=== PATIENT | male | born 1960 | race Caucasian/White ===

== ENCOUNTER 2017-10-20 17:49 | Emergency (ER) | payer SELFPAY ==
[2017-10-20 18:13] LABS: ADD MAN DIFF? NO
[2017-10-20 18:17] LABS: BASO % 1 % (0-3); EOS # 0.1 x10^3/uL (0.0-0.7); EOS % 2 % (0-3); HEMATOCRIT 39.9 % (39.0-53.0); HEMOGLOBIN 13.9 g/dL (13.0-17.5); LYMPH # 1.5 x10^3/uL (1.0-4.8); LYMPH % 32 % (24-48); MEAN CORPUSCULAR HEMOGLOBIN 34 pg (25-35); MEAN CORPUSCULAR HGB CONC 35 g/dL (31-37); MEAN CORPUSCULAR VOLUME 97 fL (79-100); MONO # 0.5 x10^3/uL (0.0-1.1); MONO % 10 % (0-9); NEUT # 2.6 x10^3uL (1.8-7.7); NEUT % 56 % (31-73); PLATELET COUNT 79 x10^3/uL (140-400); RED BLOOD COUNT 4.11 x10^6/uL (4.30-5.70); RED CELL DISTRIBUTION WIDTH 12.6 % (11.5-14.5); WHITE BLOOD COUNT 4.7 x10^3/uL (4.0-11.0)
[2017-10-20] MEDS: IV NORMAL SALINE 1000ML BAG 1,000 ML IV (18:21)
[2017-10-20 18:31] LABS: ANION GAP 13 (6-14); BLOOD UREA NITROGEN 39 mg/dL (8-26); BUN/CREATININE RATIO 22 (6-20); CALCIUM 8.9 mg/dL (8.5-10.1); CARBON DIOXIDE 21 mmol/L (21-32); CHLORIDE 100 mmol/L (98-107); CREATININE 1.8 mg/dL (0.7-1.3); GFR 38.9; GLUCOSE 379 mg/dL (70-99); POTASSIUM 4.3 mmol/L (3.5-5.1); SODIUM 134 mmol/L (136-145)
[2017-10-20 18:36] LABS: ALBUMIN 3.3 g/dL (3.4-5.0); ALBUMIN/GLOBULIN RATIO 0.7 (1.0-1.7); ALK PHOS 73 U/L (46-116); ALT (SGPT) 156 U/L (16-63); AST (SGOT) 111 U/L (15-37); TOTAL BILIRUBIN 0.9 mg/dL (0.2-1.0); TOTAL PROTEIN 8.1 g/dL (6.4-8.2)
[2017-10-20 18:36] LABS: TROPONINI 0.023 ng/mL (0.000-0.055)
[2017-10-20 19:21] LABS: BILIRUBIN,URINE SMALL (NEG); CLARITY,URINE CLEAR; COLOR,URINE AMBER; GLUCOSE,URINE >=1000 mg/dL (NEG); NITRITE,URINE NEGATIVE (NEG); PH,URINE 5.5; PROTEIN,URINE 100 mg/dL (NEG-TRACE)
[2017-10-20 19:44] LABS: BACTERIA,URINE 0 /HPF (0-FEW); HYALINE CASTS, URINE MANY /HPF; RBC,URINE 0 /HPF (0-2)
== END 2017-10-20 19:33 | disposition left against medical advice (07) ==
LOC: ER 17:49
DX: E11.65 Type 2 diabetes mellitus with hyperglycemia (principal); I95.1 Orthostatic hypotension; R79.89 Other specified abnormal findings of blood chemistry; I48.91 Unspecified atrial fibrillation; I10 Essential (primary) hypertension; Z86.73 Personal history of transient ischemic attack (TIA), and cerebral infarction without residual deficits; Z91.010 Allergy to peanuts; Z88.0 Allergy status to penicillin; Z91.013 Allergy to seafood; Z91.018 Allergy to other foods
CPT/HCPCS: 36415; 80053; 81001; 84484; 85025; 87086; 93005; 96360; 99285-25; J7030

== ENCOUNTER 2018-05-22 16:33 | Observation (INO) | payer OTHER ==
[~2018-05-22] VITALS: Ht 175.3 cm; Wt 89.8 kg
[~2018-05-22 16:33] MED LIST: AMLO10TA4 PO; AMLO5TAB7 PO; ASPI325T11 PO; ATOR20TA58 PO; CLOP75TA PO; FURO20TA3 PO; FURO40TA4 PO; GLYB5TAB3 PO; HYDR-2145 PO; INSU100I13 SQ; LISI-130 PO; METF10007 PO; METO25TA4 PO; METO50TA6 PO; MIRT15TA3 PO; SPIR50TA4 PO; TAMS0.4C2 PO; WARF-31 PO
[2018-05-22] MEDS ORDERED: IV NORMAL SALINE 1000ML BAG 1,000 ML IV SCH (17:00)
--- NOTE | 2018-05-22 17:25 | PHYS DOC ---
Past Medical History Past Medical History: A-Fib, CVA, Diabetes-Type II, Hypertension Past Surgical History: No Surgical History Alcohol Use: None Drug Use: None Adult General Chief Complaint Chief Complaint: ABDOMINAL PAIN HPI HPI Patient is a 57-year-old male who presents with complaints of being very anxious at because his caregivers have been fighting. He states that he is feeling depressed but not having any suicidal ideations. Patient states that he would just like to live in an old folks home. He also indicates that he has been having some abdominal pain and has had mild loose stools. He denies any fever. He does indicate that he has had some back pain as well. Patient states that there are no alleviating factors. Review of Systems Review of Systems Constitutional: Denies fever or chills [] Respiratory: Denies shortness of breath [] Cardiovascular: No additional information not addressed in HPI [] GI: Complains of abdominal pain without vomiting or diarrhea. Positive loose stools. [] Musculoskeletal: Positive back pain [] Integument: Denies rash or skin lesions [] Psychiatric: Positive anxiety and depression. Negative suicidal or homicidal ideations. [] Current Medications Current Medications Current Medications Medications (Trade) Dose Ordered Sig/Nithya Start Time Stop Time Status Last Admin Dose Admin Sodium Chloride 1,000 ml @ 1,000 mls/hr Q1H 05/22/18 17:00 05/22/18 17:59 DC 05/22/18 17:35 1,000 MLS/HR Allergies Allergies Allergies Coded Allergies Type Severity Reaction Last Updated Verified Fish Containing Products Allergy Severe Anaphylaxis 05/12/18 Yes Iodine and Iodide Containing Produc Allergy Severe swelling 04/17/18 Yes Penicillins Allergy Severe swelling 04/17/18 Yes peanut Allergy Severe Swelling 04/14/18 Yes shellfish derived Allergy Severe Anaphylaxis 05/12/18 Yes Physical Exam Physical Exam Constitutional: Well developed, well nourished, no acute distress, non-toxic appearance. [] HENT: Normocephalic, atraumatic, bilateral external ears normal, oropharynx moist, no oral exudates, nose normal. [] Eyes: PERRLA, EOMI, conjunctiva normal, no discharge. [] Neck: Normal range of motion, no tenderness, supple. [] Cardiovascular: Regular rate and rhythm [] Lungs & Thorax: Bilateral breath sounds clear to auscultation [] Abdomen: Bowel sounds normal, soft, with mild generalized tenderness. [] Skin: Warm, dry, no erythema, no rash. [] Extremities: No tenderness, no cyanosis, no clubbing, ROM intact, no edema. [] Neurologic: Alert and oriented X 3, normal motor function, normal sensory function, no focal deficits noted. [] Current Patient Data Vital Signs Vital Signs Date Time Temp Pulse Resp B/P (MAP) Pulse Ox O2 Delivery O2 Flow Rate FiO2 05/22/18 16:33 98.4 90 16 158/99 (118) 100 Room Air 98.4 Lab Values Laboratory Tests Test 05/22/18 17:25 05/22/18 18:00 White Blood Count 6.3 x10^3/uL (4.0-11.0) Red Blood Count 4.22 x10^6/uL (4.30-5.70) L Hemoglobin 13.7 g/dL (13.0-17.5) Hematocrit 38.4 % (39.0-53.0) L Mean Corpuscular Volume 91 fL (79-100) Mean Corpuscular Hemoglobin 33 pg (25-35) Mean Corpuscular Hemoglobin Concent 36 g/dL (31-37) Red Cell Distribution Width 13.3 % (11.5-14.5) Platelet Count 105 x10^3/uL (140-400) L Neutrophils (%) (Auto) 64 % (31-73) Lymphocytes (%) (Auto) 25 % (24-48) Monocytes (%) (Auto) 10 % (0-9) H Eosinophils (%) (Auto) 1 % (0-3) Basophils (%) (Auto) 1 % (0-3) Neutrophils # (Auto) 4.0 x10^3uL (1.8-7.7) Lymphocytes # (Auto) 1.5 x10^3/uL (1.0-4.8) Monocytes # (Auto) 0.6 x10^3/uL (0.0-1.1) Eosinophils # (Auto) 0.1 x10^3/uL (0.0-0.7) Basophils # (Auto) 0.1 x10^3/uL (0.0-0.2) Sodium Level 140 mmol/L (136-145) Potassium Level 4.0 mmol/L (3.5-5.1) Chloride Level 104 mmol/L (98-107) Carbon Dioxide Level 27 mmol/L (21-32) Anion Gap 9 (6-14) Blood Urea Nitrogen 28 mg/dL (8-26) H Creatinine 1.0 mg/dL (0.7-1.3) Estimated GFR (Cockcroft-Gault) 76.5 BUN/Creatinine Ratio 28 (6-20) H Glucose Level 91 mg/dL (70-99) Calcium Level 8.9 mg/dL (8.5-10.1) Total Bilirubin 0.4 mg/dL (0.2-1.0) Aspartate Amino Transferase (AST) 61 U/L (15-37) H Alanine Aminotransferase (ALT) 48 U/L (16-63) Alkaline Phosphatase 124 U/L (46-116) H Total Protein 7.9 g/dL (6.4-8.2) Albumin 2.5 g/dL (3.4-5.0) L Albumin/Globulin Ratio 0.5 (1.0-1.7) L Lipase 133 U/L (73-393) Urine Collection Type Unknown Urine Color Yellow Urine Clarity Clear Urine pH 7.5 Urine Specific [place] 1.020 Urine Protein >=300 mg/dL (NEG-TRACE) Urine Glucose (UA) Negative mg/dL (NEG) Urine Ketones (Stick) Negative mg/dL (NEG) Urine Blood Negative (NEG) Urine Nitrite Negative (NEG) Urine Bilirubin Negative (NEG) Urine Urobilinogen Dipstick 4.0 mg/dL (0.2 mg/dL) Urine Leukocyte Esterase Negative (NEG) Urine RBC Occ /HPF (0-2) Urine WBC 0 /HPF (0-4) Urine Squamous Epithelial Cells Occ /LPF Urine Bacteria 0 /HPF (0-FEW) Urine Mucus Slight /LPF Urine Opiates Screen Neg (NEG) Urine Methadone Screen Neg (NEG) Urine Barbiturates Neg (NEG) Urine Phencyclidine Screen Neg (NEG) Urine Amphetamine/Methamphetamine Neg (NEG) Urine Benzodiazepines Screen Neg (NEG) Urine Cocaine Screen Neg (NEG) Urine Cannabinoids Screen Neg (NEG) Urine Ethyl Alcohol Neg (NEG) Laboratory Tests 05/22/18 17:25 Laboratory Tests 05/22/18 17:25 EKG EKG [] Radiology/Procedures Radiology/Procedures [] Course & Med Decision Making Course & Med Decision Making Pertinent Labs and Imaging studies reviewed. (See chart for details) [] Dragon Disclaimer Dragon Disclaimer This electronic medical record was generated, in whole or in part, using a voice recognition dictation system. Departure Departure Impression: Primary Impression: Abdominal pain, generalized Additional Impression: Anxiety about health Disposition: 09 ADMITTED INPATIENT Admitting Physician: Other Condition: GOOD (Shay) Referrals: UNKNOWN PCP NAME (PCP) Problem Qualifiers ETTA RAYMOND Jr. DO May 22, 2018 17:25
[2018-05-22 17:39] LABS: BASO # 0.1 x10^3/uL (0.0-0.2); BASO % 1 % (0-3); EOS # 0.1 x10^3/uL (0.0-0.7); EOS % 1 % (0-3); HEMATOCRIT 38.4 % (39.0-53.0); HEMOGLOBIN 13.7 g/dL (13.0-17.5); LYMPH # 1.5 x10^3/uL (1.0-4.8); LYMPH % 25 % (24-48); MEAN CORPUSCULAR HEMOGLOBIN 33 pg (25-35); MEAN CORPUSCULAR HGB CONC 36 g/dL (31-37); MEAN CORPUSCULAR VOLUME 91 fL (79-100); MONO # 0.6 x10^3/uL (0.0-1.1); MONO % 10 % (0-9); NEUT % 64 % (31-73); PLATELET COUNT 105 x10^3/uL (140-400); RED BLOOD COUNT 4.22 x10^6/uL (4.30-5.70); RED CELL DISTRIBUTION WIDTH 13.3 % (11.5-14.5); WHITE BLOOD COUNT 6.3 x10^3/uL (4.0-11.0)
[2018-05-22 17:49] LABS: CALCIUM 8.9 mg/dL (8.5-10.1); GFR 76.5
[2018-05-22 17:55] LABS: ALBUMIN 2.5 g/dL (3.4-5.0); ALBUMIN/GLOBULIN RATIO 0.5 (1.0-1.7); TOTAL BILIRUBIN 0.4 mg/dL (0.2-1.0); TOTAL PROTEIN 7.9 g/dL (6.4-8.2)
[2018-05-22 18:09] LABS: BILIRUBIN,URINE NEGATIVE (NEG); CLARITY,URINE CLEAR; COLOR,URINE YELLOW; NITRITE,URINE NEGATIVE (NEG); PH,URINE 7.5; PROTEIN,URINE >=300 mg/dL (NEG-TRACE)
[2018-05-22 18:15] LABS: AMPHETAMINE/METHAMPHETAMINE NEG (NEG); BARBITURATES NEG (NEG); BENZODIAZEPINES NEG (NEG); CANNABINOIDS NEG (NEG); COCAINE NEG (NEG); METHADONE NEG (NEG); OPIATES NEG (NEG); PHENCYCLIDINE NEG (NEG)
[2018-05-22 18:16] LABS: BACTERIA,URINE 0 /HPF (0-FEW); RBC,URINE OCC /HPF (0-2); SQUAMOUS EPITHELIAL CELL,UR OCC /LPF; WBC,URINE 0 /HPF (0-4)
[2018-05-22 19:45] VITALS: BP 152/100
--- NOTE | 2018-05-22 20:00 | NUR ---
Patient arrived into room 586 at 1930, the patient arrived to the room via personal wheelchair and two ED RNs at his side. The patient's home wheelchair is in the patient's room at this time. The patient's belongs were placed in the recliner by ED staff. The Patient was given fresh ice water and more blankets upon request at this time. This RN will continue to monitor the patient at this time.
[2018-05-22] MEDS ORDERED: PROCHLORPERAZINE 10 MG/2 ML VIAL. IV PRN (20:15)
[2018-05-22] MEDS ORDERED: MAGNESIUM HYDROXIDE 2,400 MG/30 ML ORAL.SUSP. PO PRN (20:15)
--- NOTE | 2018-05-22 20:39 | PDOC1 ---
History and Physical Date of Admission Date of Admission DATE: 05/22/18 TIME: 20:16 Identification/Chief Complaint Chief Complaint combative at home Problems: (1) Anxiety about health (2) Abdominal pain, generalized Source Source: Caregiver, Chart review, Patient History of Present Illness History of Present Illness Patient is a 57-year-old with hx of stroke, HTN, afib, medication non- compliance who was brought in as patient combative with both his caregiver and home health nurse. patient fired by home health nurse agency given behavior and senior geologist unable to care for him given combative nature. patient lives at caretakers home. He reports epigastric pain for a few weeks. has no other complaints. asking something for sleep in pain. patient has no home to go to so brought in as self-care deficit. hospitalist called for admission. Past Medical History Cardiovascular: AFIB, CAD, HTN, Hyperlipidemia Pulmonary: Asthma CENTRAL NERVOUS SYSTEM: CVA, Periperal neuropathy GI: Other Heme/Onc: No pertinent hx Hepatobiliary: Cirrhosis, Hep A/B/C Psych: No pertinent hx Musculoskeletal: low back pain Rheumatologic: No pertinent hx Infectious disease: No pertinent hx Renal/: No pertinent hx Endocrine: Diabetes Past Surgical History Past Surgical History: No pertinent history Family History Family History denies Family History: Diabetes, Hypertension, Family History Unknown Social History Smoke: No ALCOHOL: none Current Problem List Problem List Problems Medical Problems: (1) Abdominal pain, generalized Status: Acute (2) Anxiety about health Status: Acute Current Medications Current Medications Current Medications Sodium Chloride 1,000 ml @ 1,000 mls/hr Q1H IV Last administered on 05/22/18at 17:35; Start 05/22/18 at 17:00; Stop 05/22/18 at 17:59; Status DC Prochlorperazine Edisylate (Compazine) 10 mg PRN Q6HRS PRN IV NAUSEA/VOMITING; Start 05/22/18 at 20:15 Zolpidem Tartrate (Ambien) 5 mg PRN QHS PRN PO INSOMNIA, MAY REPEAT IN 1HR; Start 05/22/18 at 20:15 Acetaminophen/ Hydrocodone Bitart (Lortab 5/325) 1 tab PRN Q4HRS PRN PO MILD PAIN; Start 05/22/18 at 20:15 Magnesium Hydroxide (Milk Of Magnesia) 2,400 mg PRN Q12HR PRN PO CONSTIPATION; Start 05/22/18 at 20:15 Amlodipine Besylate (Norvasc) 10 mg DAILY PO ; Start 05/23/18 at 09:00; Status UNV Aspirin (Ecotrin) 325 mg DAILYWBKFT PO ; Start 05/23/18 at 08:00; Status UNV Atorvastatin Calcium (Lipitor) 20 mg QHS PO ; Start 05/22/18 at 21:00; Status UNV Clopidogrel Bisulfate (Plavix) 75 mg DAILYWBKFT PO ; Start 05/23/18 at 08:00; Status UNV Furosemide (Lasix) 40 mg DAILY PO ; Start 05/23/18 at 09:00; Status UNV Glyburide (Diabeta) 5 mg BID PO ; Start 05/22/18 at 21:00; Status UNV Hydrochlorothiazide (Hydrodiuril) 25 mg DAILY PO ; Start 05/23/18 at 09:00; Status UNV Insulin Glargine (Lantus) 20 units QHS SQ ; Start 05/22/18 at 21:00; Status UNV Lisinopril (Prinivil) 40 mg DAILY PO ; Start 05/23/18 at 09:00; Status UNV Metoprolol Tartrate (Lopressor) 25 mg BID PO ; Start 05/22/18 at 21:00; Status UNV Active Scripts Active Glyburide 5 Mg Tablet 1 Tab PO BID Hydrochlorothiazide Tablet (Hydrochlorothiazide) 25 Mg Tablet 25 Mg PO DAILY 30 Days Norvasc (Amlodipine Besylate) 10 Mg Tablet 10 Mg PO DAILY 30 Days Lantus Solostar (Insulin Glargine,Hum.rec.anlog) 100 Unit/1 Ml Insuln.pen 20 Units SQ QHS MDD 1 Furosemide 40 Mg Tablet 40 Mg PO DAILY MDD 1 Aspirin Ec (Aspirin) 325 Mg Tablet.dr 325 Mg PO DAILYWBKFT MDD 1 Lisinopril 40 Mg Tablet 40 Mg PO DAILY MDD 1 Metoprolol Tartrate 50 Mg Tablet 25 Mg PO BID MDD 1 Atorvastatin Calcium 20 Mg Tablet 20 Mg PO QHS MDD 1 Clopidogrel (Clopidogrel Bisulfate) 75 Mg Tablet 75 Mg PO DAILYWBKFT MDD 1 Allergies Allergies: Coded Allergies: Fish Containing Products (Verified Allergy, Severe, Anaphylaxis, 05/12/18) Iodine and Iodide Containing Produc (Verified Allergy, Severe, swelling, 04/17/18) Penicillins (Verified Allergy, Severe, swelling, 04/17/18) peanut (Verified Allergy, Severe, Swelling, 04/14/18) shellfish derived (Verified Allergy, Severe, Anaphylaxis, 05/12/18) ROS Review of System CONSTITUTIONAL: No fever or chills EYES: No recent changes SKIN: No rash or itching CARDIOVASCULAR: No chest pain, syncope, palpitations, or edema RESPIRATORY: No SOB or cough GASTROINTESTINAL: No nausea, vomiting or abdominal pain NEUROLOGICAL: No headaches or weakness ENDOCRINE: No cold or heat intolerance GENITOURINARY: No urgency or frequency of urination MUSCULOSKELETAL: No back pain or joint pain LYMPHATICS: No enlarged lymph nodes PSYCHIATRIC: No anxiety or depression Physical Exam Physical Exam GENERAL: No apparent distress. Alert and oriented. HEENT: Head normocephalic, atraumatic. NECK: Supple LUNGS: Clear to auscultation. HEART: RRR, S1, S2 present, pulses intact ABDOMEN: Soft, positive bowel sounds. EXTREMITIES: No cyanosis or edema. NEUROLOGIC: Normal speech, normal tone PSYCHIATRIC: Normal affect, normal mood. SKIN: No ulceration. Vitals Vitals Vital Signs Date Time Temp Pulse Resp B/P (MAP) Pulse Ox O2 Delivery O2 Flow Rate FiO2 05/22/18 16:33 98.4 90 16 158/99 (118) 100 Room Air 98.4 Labs Labs Laboratory Tests Test 05/22/18 17:25 05/22/18 18:00 White Blood Count 6.3 x10^3/uL (4.0-11.0) Red Blood Count 4.22 x10^6/uL (4.30-5.70) Hemoglobin 13.7 g/dL (13.0-17.5) Hematocrit 38.4 % (39.0-53.0) Mean Corpuscular Volume 91 fL (79-100) Mean Corpuscular Hemoglobin 33 pg (25-35) Mean Corpuscular Hemoglobin Concent 36 g/dL (31-37) Red Cell Distribution Width 13.3 % (11.5-14.5) Platelet Count 105 x10^3/uL (140-400) Neutrophils (%) (Auto) 64 % (31-73) Lymphocytes (%) (Auto) 25 % (24-48) Monocytes (%) (Auto) 10 % (0-9) Eosinophils (%) (Auto) 1 % (0-3) Basophils (%) (Auto) 1 % (0-3) Neutrophils # (Auto) 4.0 x10^3uL (1.8-7.7) Lymphocytes # (Auto) 1.5 x10^3/uL (1.0-4.8) Monocytes # (Auto) 0.6 x10^3/uL (0.0-1.1) Eosinophils # (Auto) 0.1 x10^3/uL (0.0-0.7) Basophils # (Auto) 0.1 x10^3/uL (0.0-0.2) Sodium Level 140 mmol/L (136-145) Potassium Level 4.0 mmol/L (3.5-5.1) Chloride Level 104 mmol/L (98-107) Carbon Dioxide Level 27 mmol/L (21-32) Anion Gap 9 (6-14) Blood Urea Nitrogen 28 mg/dL (8-26) Creatinine 1.0 mg/dL (0.7-1.3) Estimated GFR (Cockcroft-Gault) 76.5 BUN/Creatinine Ratio 28 (6-20) Glucose Level 91 mg/dL (70-99) Calcium Level 8.9 mg/dL (8.5-10.1) Total Bilirubin 0.4 mg/dL (0.2-1.0) Aspartate Amino Transf (AST/SGOT) 61 U/L (15-37) Alanine Aminotransferase (ALT/SGPT) 48 U/L (16-63) Alkaline Phosphatase 124 U/L (46-116) Total Protein 7.9 g/dL (6.4-8.2) Albumin 2.5 g/dL (3.4-5.0) Albumin/Globulin Ratio 0.5 (1.0-1.7) Lipase 133 U/L (73-393) Urine Collection Type Unknown Urine Color Yellow Urine Clarity Clear Urine pH 7.5 Urine Specific [place] 1.020 Urine Protein >=300 mg/dL (NEG-TRACE) Urine Glucose (UA) Negative mg/dL (NEG) Urine Ketones (Stick) Negative mg/dL (NEG) Urine Blood Negative (NEG) Urine Nitrite Negative (NEG) Urine Bilirubin Negative (NEG) Urine Urobilinogen Dipstick 4.0 mg/dL (0.2 mg/dL) Urine Leukocyte Esterase Negative (NEG) Urine RBC Occ /HPF (0-2) Urine WBC 0 /HPF (0-4) Urine Squamous Epithelial Cells Occ /LPF Urine Bacteria 0 /HPF (0-FEW) Urine Mucus Slight /LPF Urine Opiates Screen Neg (NEG) Urine Methadone Screen Neg (NEG) Urine Barbiturates Neg (NEG) Urine Phencyclidine Screen Neg (NEG) Urine Amphetamine/Methamphetamine Neg (NEG) Urine Benzodiazepines Screen Neg (NEG) Urine Cocaine Screen Neg (NEG) Urine Cannabinoids Screen Neg (NEG) Urine Ethyl Alcohol Neg (NEG) Laboratory Tests Test 05/22/18 17:25 05/22/18 18:00 White Blood Count 6.3 x10^3/uL (4.0-11.0) Red Blood Count 4.22 x10^6/uL (4.30-5.70) Hemoglobin 13.7 g/dL (13.0-17.5) Hematocrit 38.4 % (39.0-53.0) Mean Corpuscular Volume 91 fL (79-100) Mean Corpuscular Hemoglobin 33 pg (25-35) Mean Corpuscular Hemoglobin Concent 36 g/dL (31-37) Red Cell Distribution Width 13.3 % (11.5-14.5) Platelet Count 105 x10^3/uL (140-400) Neutrophils (%) (Auto) 64 % (31-73) Lymphocytes (%) (Auto) 25 % (24-48) Monocytes (%) (Auto) 10 % (0-9) Eosinophils (%) (Auto) 1 % (0-3) Basophils (%) (Auto) 1 % (0-3) Neutrophils # (Auto) 4.0 x10^3uL (1.8-7.7) Lymphocytes # (Auto) 1.5 x10^3/uL (1.0-4.8) Monocytes # (Auto) 0.6 x10^3/uL (0.0-1.1) Eosinophils # (Auto) 0.1 x10^3/uL (0.0-0.7) Basophils # (Auto) 0.1 x10^3/uL (0.0-0.2) Sodium Level 140 mmol/L (136-145) Potassium Level 4.0 mmol/L (3.5-5.1) Chloride Level 104 mmol/L (98-107) Carbon Dioxide Level 27 mmol/L (21-32) Anion Gap 9 (6-14) Blood Urea Nitrogen 28 mg/dL (8-26) Creatinine 1.0 mg/dL (0.7-1.3) Estimated GFR (Cockcroft-Gault) 76.5 BUN/Creatinine Ratio 28 (6-20) Glucose Level 91 mg/dL (70-99) Calcium Level 8.9 mg/dL (8.5-10.1) Total Bilirubin 0.4 mg/dL (0.2-1.0) Aspartate Amino Transf (AST/SGOT) 61 U/L (15-37) Alanine Aminotransferase (ALT/SGPT) 48 U/L (16-63) Alkaline Phosphatase 124 U/L (46-116) Total Protein 7.9 g/dL (6.4-8.2) Albumin 2.5 g/dL (3.4-5.0) Albumin/Globulin Ratio 0.5 (1.0-1.7) Lipase 133 U/L (73-393) Urine Collection Type Unknown Urine Color Yellow Urine Clarity Clear Urine pH 7.5 Urine Specific [place] 1.020 Urine Protein >=300 mg/dL (NEG-TRACE) Urine Glucose (UA) Negative mg/dL (NEG) Urine Ketones (Stick) Negative mg/dL (NEG) Urine Blood Negative (NEG) Urine Nitrite Negative (NEG) Urine Bilirubin Negative (NEG) Urine Urobilinogen Dipstick 4.0 mg/dL (0.2 mg/dL) Urine Leukocyte Esterase Negative (NEG) Urine RBC Occ /HPF (0-2) Urine WBC 0 /HPF (0-4) Urine Squamous Epithelial Cells Occ /LPF Urine Bacteria 0 /HPF (0-FEW) Urine Mucus Slight /LPF Urine Opiates Screen Neg (NEG) Urine Methadone Screen Neg (NEG) Urine Barbiturates Neg (NEG) Urine Phencyclidine Screen Neg (NEG) Urine Amphetamine/Methamphetamine Neg (NEG) Urine Benzodiazepines Screen Neg (NEG) Urine Cocaine Screen Neg (NEG) Urine Cannabinoids Screen Neg (NEG) Urine Ethyl Alcohol Neg (NEG) VTE Prophylaxis Ordered VTE Prophylaxis Devices: Yes VTE Pharmacological Prophylaxi: No Assessment/Plan Assessment/Plan ASSESSMENT Aggressive Behavior Self Care Deficit Hx of CVA Apr 2018 Afib with CHADSVASC2 score of 4 HTN DM on insulin therapy Alkaline Phosphatemia Epigastric pain secondary to Dyspepsia PLAN - admit to medical floor bed - UDS checked and negative - continue BB therapy for afib, currently rate controlled - given chadsvasc score of 4, patient has 6.7% risk of stroke/TIA/ thromboembolism which would place him at mod-high risk and should otherwise be on oral AC. however, will defer oral AC for now given unclear social situation. continue ASA/plavix for now. - continue current anti-plt therapy for CVA - continue home BP meds - continue home insulin regimen - recheck alk phos in AM. slight elevation. - start PPI therapy for suspected dyspepsia - full code - need CM involvement to assist with social situation SOFIYA PATTERSON MD May 22, 2018 20:39
[2018-05-22] MEDS: METOPROLOL TART IMMED RELEASE 50 MG TABLET. PO SCH (21:43)
[2018-05-22] MEDS: ATORVASTATIN CALCIUM 20 MG TABLET PO SCH (21:43)
[2018-05-22] MEDS: HYDROcodone/APAP 5/325MG 1 TAB TABLET PO PRN (21:44)
[2018-05-22] MEDS: ZOLPIDEM 5 MG TABLET. PO PRN (21:44)
[2018-05-22] MEDS: INSULIN GLARGINE 300 UNITS/3 ML INSULN.PEN. SQ SCH (21:48)
[2018-05-22 23:00] VITALS: BP 146/94
[2018-05-23 03:00] VITALS: BP 135/98
[2018-05-23 04:47] LABS: BASO % 1 % (0-3); EOS # 0.1 x10^3/uL (0.0-0.7); EOS % 4 % (0-3); HEMATOCRIT 37.1 % (39.0-53.0); HEMOGLOBIN 13.1 g/dL (13.0-17.5); LYMPH # 1.4 x10^3/uL (1.0-4.8); LYMPH % 36 % (24-48); MEAN CORPUSCULAR HEMOGLOBIN 33 pg (25-35); MEAN CORPUSCULAR HGB CONC 35 g/dL (31-37); MEAN CORPUSCULAR VOLUME 92 fL (79-100); MONO # 0.4 x10^3/uL (0.0-1.1); MONO % 10 % (0-9); NEUT % 50 % (31-73); PLATELET COUNT 90 x10^3/uL (140-400); RED BLOOD COUNT 4.04 x10^6/uL (4.30-5.70); RED CELL DISTRIBUTION WIDTH 13.3 % (11.5-14.5)
[2018-05-23 06:42] LABS: CALCIUM 8.5 mg/dL (8.5-10.1); CREATININE 0.9 mg/dL (0.7-1.3); GFR 86.4; POTASSIUM 3.5 mmol/L (3.5-5.1)
[2018-05-23 07:00] VITALS: BP 160/96
[2018-05-23] MEDS: CLOPIDOGREL BISULFATE 75 MG TABLET PO SCH (08:23)
[2018-05-23] MEDS: METOPROLOL TART IMMED RELEASE 50 MG TABLET. PO SCH ×2 (08:23→20:50)
[2018-05-23] MEDS: LISINOPRIL 20 MG TABLET PO SCH (08:23)
[2018-05-23] MEDS: hydroCHLOROthiazide 25 MG TABLET PO SCH (08:23)
[2018-05-23] MEDS: PANTOPRAZOLE 40 MG TABLET.DR. PO SCH (08:23)
--- NOTE | 2018-05-23 08:23 | PDOC ---
PROGRESS NOTES Chief Complaint Chief Complaint Aggressive Behavior Self Care Deficit Hx of CVA Apr 2018 Afib with CHADSVASC2 score of 4 HTN DM on insulin therapy Alkaline Phosphatemia Epigastric pain secondary to Dyspepsia Cirrhosis (on ultrasound) History of Present Illness History of Present Illness 57-year-old with hx of stroke, HTN, afib, medication non-compliance who was brought in as patient combative with both his caregiver and home health nurse. patient fired by home health nurse agency given behavior and insurance agency manager unable to care for him given combative nature. patient lives at caretakers home. He reports epigastric pain for a few weeks. has no other complaints. asking something for sleep in pain. patient has no home to go to so brought in as self- care deficit. Overnight was verbally rude to staff. Has pain complaints everywhere. States he is unable, actively urinated on himself during my physical examination and asked me to clean it up. A/P: Hx of CVA Apr 2018 - Currently unable to walk, or refusing to walk, either way he fell out of a wheelchair at home and hurt his right arm and buttocks. Afib with CHADSVASC2 score of 4 - needs to continue anticoagulation HTN DM on insulin therapy Alkaline Phosphatemia Epigastric pain secondary to Dyspepsia Cirrhosis (on ultrasound) Self Care Deficit - needs SNF, however apparently this is not possible given his financial situation Vitals Vitals Vital Signs Date Time Temp Pulse Resp B/P (MAP) Pulse Ox O2 Delivery O2 Flow Rate FiO2 05/23/18 03:00 98.1 64 20 135/98 (110) 98 98.1 05/22/18 21:44 Room Air Physical Exam General: Alert, Cooperative, No acute distress Heart: Regular rate, Normal S1, Normal S2, No murmurs Lungs: Clear Abdomen: Normal bowel sounds, Soft, No tenderness, No hepatosplenomegaly Extremities: No clubbing, No cyanosis, No edema, Normal pulses Skin: No rashes, No breakdown Labs LABS Laboratory Tests Test 05/22/18 17:25 05/22/18 18:00 05/22/18 21:16 05/23/18 04:30 White Blood Count 6.3 x10^3/uL (4.0-11.0) 4.0 x10^3/uL (4.0-11.0) Red Blood Count 4.22 x10^6/uL (4.30-5.70) 4.04 x10^6/uL (4.30-5.70) Hemoglobin 13.7 g/dL (13.0-17.5) 13.1 g/dL (13.0-17.5) Hematocrit 38.4 % (39.0-53.0) 37.1 % (39.0-53.0) Mean Corpuscular Volume 91 fL (79-100) 92 fL (79-100) Mean Corpuscular Hemoglobin 33 pg (25-35) 33 pg (25-35) Mean Corpuscular Hemoglobin Concent 36 g/dL (31-37) 35 g/dL (31-37) Red Cell Distribution Width 13.3 % (11.5-14.5) 13.3 % (11.5-14.5) Platelet Count 105 x10^3/uL (140-400) 90 x10^3/uL (140-400) Neutrophils (%) (Auto) 64 % (31-73) 50 % (31-73) Lymphocytes (%) (Auto) 25 % (24-48) 36 % (24-48) Monocytes (%) (Auto) 10 % (0-9) 10 % (0-9) Eosinophils (%) (Auto) 1 % (0-3) 4 % (0-3) Basophils (%) (Auto) 1 % (0-3) 1 % (0-3) Neutrophils # (Auto) 4.0 x10^3uL (1.8-7.7) 2.0 x10^3uL (1.8-7.7) Lymphocytes # (Auto) 1.5 x10^3/uL (1.0-4.8) 1.4 x10^3/uL (1.0-4.8) Monocytes # (Auto) 0.6 x10^3/uL (0.0-1.1) 0.4 x10^3/uL (0.0-1.1) Eosinophils # (Auto) 0.1 x10^3/uL (0.0-0.7) 0.1 x10^3/uL (0.0-0.7) Basophils # (Auto) 0.1 x10^3/uL (0.0-0.2) 0.0 x10^3/uL (0.0-0.2) Sodium Level 140 mmol/L (136-145) 139 mmol/L (136-145) Potassium Level 4.0 mmol/L (3.5-5.1) 3.5 mmol/L (3.5-5.1) Chloride Level 104 mmol/L (98-107) 104 mmol/L (98-107) Carbon Dioxide Level 27 mmol/L (21-32) 26 mmol/L (21-32) Anion Gap 9 (6-14) 9 (6-14) Blood Urea Nitrogen 28 mg/dL (8-26) 23 mg/dL (8-26) Creatinine 1.0 mg/dL (0.7-1.3) 0.9 mg/dL (0.7-1.3) Estimated GFR (Cockcroft-Gault) 76.5 86.4 BUN/Creatinine Ratio 28 (6-20) Glucose Level 91 mg/dL (70-99) 89 mg/dL (70-99) Calcium Level 8.9 mg/dL (8.5-10.1) 8.5 mg/dL (8.5-10.1) Total Bilirubin 0.4 mg/dL (0.2-1.0) Aspartate Amino Transf (AST/SGOT) 61 U/L (15-37) Alanine Aminotransferase (ALT/SGPT) 48 U/L (16-63) Alkaline Phosphatase 124 U/L (46-116) 117 U/L (46-116) Total Protein 7.9 g/dL (6.4-8.2) Albumin 2.5 g/dL (3.4-5.0) Albumin/Globulin Ratio 0.5 (1.0-1.7) Lipase 133 U/L (73-393) Urine Collection Type Unknown Urine Color Yellow Urine Clarity Clear Urine pH 7.5 Urine Specific [place] 1.020 Urine Protein >=300 mg/dL (NEG-TRACE) Urine Glucose (UA) Negative mg/dL (NEG) Urine Ketones (Stick) Negative mg/dL (NEG) Urine Blood Negative (NEG) Urine Nitrite Negative (NEG) Urine Bilirubin Negative (NEG) Urine Urobilinogen Dipstick 4.0 mg/dL (0.2 mg/dL) Urine Leukocyte Esterase Negative (NEG) Urine RBC Occ /HPF (0-2) Urine WBC 0 /HPF (0-4) Urine Squamous Epithelial Cells Occ /LPF Urine Bacteria 0 /HPF (0-FEW) Urine Mucus Slight /LPF Urine Opiates Screen Neg (NEG) Urine Methadone Screen Neg (NEG) Urine Barbiturates Neg (NEG) Urine Phencyclidine Screen Neg (NEG) Urine Amphetamine/Methamphetamine Neg (NEG) Urine Benzodiazepines Screen Neg (NEG) Urine Cocaine Screen Neg (NEG) Urine Cannabinoids Screen Neg (NEG) Urine Ethyl Alcohol Neg (NEG) Glucose (Fingerstick) 241 mg/dL (70-99) Test 05/23/18 04:34 Glucose (Fingerstick) 82 mg/dL (70-99) Assessment and Plan Assessmemt and Plan Problems Medical Problems: (1) Abdominal pain, generalized Status: Acute (2) Anxiety about health Status: Acute Comment Review of Relevant I have reviewed the following items sancho (where applicable) has been applied. Labs Laboratory Tests Test 05/22/18 17:25 05/22/18 18:00 05/22/18 21:16 05/23/18 04:30 White Blood Count 6.3 x10^3/uL (4.0-11.0) 4.0 x10^3/uL (4.0-11.0) Red Blood Count 4.22 x10^6/uL (4.30-5.70) 4.04 x10^6/uL (4.30-5.70) Hemoglobin 13.7 g/dL (13.0-17.5) 13.1 g/dL (13.0-17.5) Hematocrit 38.4 % (39.0-53.0) 37.1 % (39.0-53.0) Mean Corpuscular Volume 91 fL (79-100) 92 fL (79-100) Mean Corpuscular Hemoglobin 33 pg (25-35) 33 pg (25-35) Mean Corpuscular Hemoglobin Concent 36 g/dL (31-37) 35 g/dL (31-37) Red Cell Distribution Width 13.3 % (11.5-14.5) 13.3 % (11.5-14.5) Platelet Count 105 x10^3/uL (140-400) 90 x10^3/uL (140-400) Neutrophils (%) (Auto) 64 % (31-73) 50 % (31-73) Lymphocytes (%) (Auto) 25 % (24-48) 36 % (24-48) Monocytes (%) (Auto) 10 % (0-9) 10 % (0-9) Eosinophils (%) (Auto) 1 % (0-3) 4 % (0-3) Basophils (%) (Auto) 1 % (0-3) 1 % (0-3) Neutrophils # (Auto) 4.0 x10^3uL (1.8-7.7) 2.0 x10^3uL (1.8-7.7) Lymphocytes # (Auto) 1.5 x10^3/uL (1.0-4.8) 1.4 x10^3/uL (1.0-4.8) Monocytes # (Auto) 0.6 x10^3/uL (0.0-1.1) 0.4 x10^3/uL (0.0-1.1) Eosinophils # (Auto) 0.1 x10^3/uL (0.0-0.7) 0.1 x10^3/uL (0.0-0.7) Basophils # (Auto) 0.1 x10^3/uL (0.0-0.2) 0.0 x10^3/uL (0.0-0.2) Sodium Level 140 mmol/L (136-145) 139 mmol/L (136-145) Potassium Level 4.0 mmol/L (3.5-5.1) 3.5 mmol/L (3.5-5.1) Chloride Level 104 mmol/L (98-107) 104 mmol/L (98-107) Carbon Dioxide Level 27 mmol/L (21-32) 26 mmol/L (21-32) Anion Gap 9 (6-14) 9 (6-14) Blood Urea Nitrogen 28 mg/dL (8-26) 23 mg/dL (8-26) Creatinine 1.0 mg/dL (0.7-1.3) 0.9 mg/dL (0.7-1.3) Estimated GFR (Cockcroft-Gault) 76.5 86.4 BUN/Creatinine Ratio 28 (6-20) Glucose Level 91 mg/dL (70-99) 89 mg/dL (70-99) Calcium Level 8.9 mg/dL (8.5-10.1) 8.5 mg/dL (8.5-10.1) Total Bilirubin 0.4 mg/dL (0.2-1.0) Aspartate Amino Transf (AST/SGOT) 61 U/L (15-37) Alanine Aminotransferase (ALT/SGPT) 48 U/L (16-63) Alkaline Phosphatase 124 U/L (46-116) 117 U/L (46-116) Total Protein 7.9 g/dL (6.4-8.2) Albumin 2.5 g/dL (3.4-5.0) Albumin/Globulin Ratio 0.5 (1.0-1.7) Lipase 133 U/L (73-393) Urine Collection Type Unknown Urine Color Yellow Urine Clarity Clear Urine pH 7.5 Urine Specific [place] 1.020 Urine Protein >=300 mg/dL (NEG-TRACE) Urine Glucose (UA) Negative mg/dL (NEG) Urine Ketones (Stick) Negative mg/dL (NEG) Urine Blood Negative (NEG) Urine Nitrite Negative (NEG) Urine Bilirubin Negative (NEG) Urine Urobilinogen Dipstick 4.0 mg/dL (0.2 mg/dL) Urine Leukocyte Esterase Negative (NEG) Urine RBC Occ /HPF (0-2) Urine WBC 0 /HPF (0-4) Urine Squamous Epithelial Cells Occ /LPF Urine Bacteria 0 /HPF (0-FEW) Urine Mucus Slight /LPF Urine Opiates Screen Neg (NEG) Urine Methadone Screen Neg (NEG) Urine Barbiturates Neg (NEG) Urine Phencyclidine Screen Neg (NEG) Urine Amphetamine/Methamphetamine Neg (NEG) Urine Benzodiazepines Screen Neg (NEG) Urine Cocaine Screen Neg (NEG) Urine Cannabinoids Screen Neg (NEG) Urine Ethyl Alcohol Neg (NEG) Glucose (Fingerstick) 241 mg/dL (70-99) Test 05/23/18 04:34 Glucose (Fingerstick) 82 mg/dL (70-99) Laboratory Tests Test 05/22/18 17:25 05/22/18 18:00 05/22/18 21:16 05/23/18 04:30 White Blood Count 6.3 x10^3/uL (4.0-11.0) 4.0 x10^3/uL (4.0-11.0) Red Blood Count 4.22 x10^6/uL (4.30-5.70) 4.04 x10^6/uL (4.30-5.70) Hemoglobin 13.7 g/dL (13.0-17.5) 13.1 g/dL (13.0-17.5) Hematocrit 38.4 % (39.0-53.0) 37.1 % (39.0-53.0) Mean Corpuscular Volume 91 fL (79-100) 92 fL (79-100) Mean Corpuscular Hemoglobin 33 pg (25-35) 33 pg (25-35) Mean Corpuscular Hemoglobin Concent 36 g/dL (31-37) 35 g/dL (31-37) Red Cell Distribution Width 13.3 % (11.5-14.5) 13.3 % (11.5-14.5) Platelet Count 105 x10^3/uL (140-400) 90 x10^3/uL (140-400) Neutrophils (%) (Auto) 64 % (31-73) 50 % (31-73) Lymphocytes (%) (Auto) 25 % (24-48) 36 % (24-48) Monocytes (%) (Auto) 10 % (0-9) 10 % (0-9) Eosinophils (%) (Auto) 1 % (0-3) 4 % (0-3) Basophils (%) (Auto) 1 % (0-3) 1 % (0-3) Neutrophils # (Auto) 4.0 x10^3uL (1.8-7.7) 2.0 x10^3uL (1.8-7.7) Lymphocytes # (Auto) 1.5 x10^3/uL (1.0-4.8) 1.4 x10^3/uL (1.0-4.8) Monocytes # (Auto) 0.6 x10^3/uL (0.0-1.1) 0.4 x10^3/uL (0.0-1.1) Eosinophils # (Auto) 0.1 x10^3/uL (0.0-0.7) 0.1 x10^3/uL (0.0-0.7) Basophils # (Auto) 0.1 x10^3/uL (0.0-0.2) 0.0 x10^3/uL (0.0-0.2) Sodium Level 140 mmol/L (136-145) 139 mmol/L (136-145) Potassium Level 4.0 mmol/L (3.5-5.1) 3.5 mmol/L (3.5-5.1) Chloride Level 104 mmol/L (98-107) 104 mmol/L (98-107) Carbon Dioxide Level 27 mmol/L (21-32) 26 mmol/L (21-32) Anion Gap 9 (6-14) 9 (6-14) Blood Urea Nitrogen 28 mg/dL (8-26) 23 mg/dL (8-26) Creatinine 1.0 mg/dL (0.7-1.3) 0.9 mg/dL (0.7-1.3) Estimated GFR (Cockcroft-Gault) 76.5 86.4 BUN/Creatinine Ratio 28 (6-20) Glucose Level 91 mg/dL (70-99) 89 mg/dL (70-99) Calcium Level 8.9 mg/dL (8.5-10.1) 8.5 mg/dL (8.5-10.1) Total Bilirubin 0.4 mg/dL (0.2-1.0) Aspartate Amino Transf (AST/SGOT) 61 U/L (15-37) Alanine Aminotransferase (ALT/SGPT) 48 U/L (16-63) Alkaline Phosphatase 124 U/L (46-116) 117 U/L (46-116) Total Protein 7.9 g/dL (6.4-8.2) Albumin 2.5 g/dL (3.4-5.0) Albumin/Globulin Ratio 0.5 (1.0-1.7) Lipase 133 U/L (73-393) Urine Collection Type Unknown Urine Color Yellow Urine Clarity Clear Urine pH 7.5 Urine Specific [place] 1.020 Urine Protein >=300 mg/dL (NEG-TRACE) Urine Glucose (UA) Negative mg/dL (NEG) Urine Ketones (Stick) Negative mg/dL (NEG) Urine Blood Negative (NEG) Urine Nitrite Negative (NEG) Urine Bilirubin Negative (NEG) Urine Urobilinogen Dipstick 4.0 mg/dL (0.2 mg/dL) Urine Leukocyte Esterase Negative (NEG) Urine RBC Occ /HPF (0-2) Urine WBC 0 /HPF (0-4) Urine Squamous Epithelial Cells Occ /LPF Urine Bacteria 0 /HPF (0-FEW) Urine Mucus Slight /LPF Urine Opiates Screen Neg (NEG) Urine Methadone Screen Neg (NEG) Urine Barbiturates Neg (NEG) Urine Phencyclidine Screen Neg (NEG) Urine Amphetamine/Methamphetamine Neg (NEG) Urine Benzodiazepines Screen Neg (NEG) Urine Cocaine Screen Neg (NEG) Urine Cannabinoids Screen Neg (NEG) Urine Ethyl Alcohol Neg (NEG) Glucose (Fingerstick) 241 mg/dL (70-99) Test 05/23/18 04:34 Glucose (Fingerstick) 82 mg/dL (70-99) Medications Current Medications Sodium Chloride 1,000 ml @ 1,000 mls/hr Q1H IV Last administered on 05/22/18at 17:35; Start 05/22/18 at 17:00; Stop 05/22/18 at 17:59; Status DC Prochlorperazine Edisylate (Compazine) 10 mg PRN Q6HRS PRN IV NAUSEA/VOMITING; Start 05/22/18 at 20:15 Zolpidem Tartrate (Ambien) 5 mg PRN QHS PRN PO INSOMNIA, MAY REPEAT IN 1HR Last administered on 05/22/18at 21:44; Start 05/22/18 at 20:15 Acetaminophen/ Hydrocodone Bitart (Lortab 5/325) 1 tab PRN Q4HRS PRN PO MILD PAIN Last administered on 05/22/18at 21:44; Start 05/22/18 at 20:15 Magnesium Hydroxide (Milk Of Magnesia) 2,400 mg PRN Q12HR PRN PO CONSTIPATION; Start 05/22/18 at 20:15 Amlodipine Besylate (Norvasc) 10 mg DAILY PO ; Start 05/23/18 at 09:00 Aspirin (Ecotrin) 325 mg DAILYWBKFT PO ; Start 05/23/18 at 08:00 Atorvastatin Calcium (Lipitor) 20 mg QHS PO Last administered on 05/22/18at 21:43 ; Start 05/22/18 at 21:00 Clopidogrel Bisulfate (Plavix) 75 mg DAILYWBKFT PO ; Start 05/23/18 at 08:00 Furosemide (Lasix) 40 mg DAILY PO ; Start 05/23/18 at 09:00 Glyburide (Diabeta) 5 mg BIDWMEALS PO ; Start 05/23/18 at 08:00 Hydrochlorothiazide (Hydrodiuril) 25 mg DAILY PO ; Start 05/23/18 at 09:00 Insulin Glargine (Lantus) 20 units QHS SQ Last administered on 05/22/18at 21:48; Start 05/22/18 at 21:00 Lisinopril (Prinivil) 40 mg DAILY PO ; Start 05/23/18 at 09:00 Metoprolol Tartrate (Lopressor) 25 mg BID PO Last administered on 05/22/18at 21: 43; Start 05/22/18 at 21:00 Pantoprazole Sodium (Protonix) 40 mg DAILYAC PO ; Start 05/23/18 at 07:30 Active Scripts Active Glyburide 5 Mg Tablet 1 Tab PO BID Hydrochlorothiazide Tablet (Hydrochlorothiazide) 25 Mg Tablet 25 Mg PO DAILY 30 Days Norvasc (Amlodipine Besylate) 10 Mg Tablet 10 Mg PO DAILY 30 Days Lantus Solostar (Insulin Glargine,Hum.rec.anlog) 100 Unit/1 Ml Insuln.pen 20 Units SQ QHS MDD 1 Furosemide 40 Mg Tablet 40 Mg PO DAILY MDD 1 Aspirin Ec (Aspirin) 325 Mg Tablet.dr 325 Mg PO DAILYWBKFT MDD 1 Lisinopril 40 Mg Tablet 40 Mg PO DAILY MDD 1 Metoprolol Tartrate 50 Mg Tablet 25 Mg PO BID MDD 1 Atorvastatin Calcium 20 Mg Tablet 20 Mg PO QHS MDD 1 Clopidogrel (Clopidogrel Bisulfate) 75 Mg Tablet 75 Mg PO DAILYWBKFT MDD 1 Vitals/I & O Vital Sign - Last 24 Hours 05/22/18 05/22/18 05/22/18 05/22/18 16:33 17:33 18:07 19:07 Temp 98.4 98.4 Pulse 90 90 86 91 Resp 16 18 18 18 B/P (MAP) 158/99 (118) 155/103 (120) 159/108 (125) 149/100 (116) Pulse Ox 100 98 99 99 O2 Delivery Room Air Room Air Room Air Room Air 05/22/18 05/22/18 05/22/18 05/22/18 19:45 20:08 21:43 21:44 Temp 98.9 98.9 Pulse 99 99 Resp 20 B/P (MAP) 152/100 (117) 152/100 Pulse Ox 98 99 O2 Delivery Room Air Room Air 05/22/18 05/23/18 23:00 03:00 Temp 98.5 98.1 98.5 98.1 Pulse 94 64 Resp 20 20 B/P (MAP) 146/94 (111) 135/98 (110) Pulse Ox 97 98 Intake and Output 05/22/18 05/22/18 05/23/18 15:01 23:01 07:01 Intake Total 1000 ml 600 ml Output Total 650 ml Balance 1000 ml -50 ml AVEL KOCH MD May 23, 2018 08:22
[2018-05-23] MEDS: amLODIPine BESYLATE 10 MG TABLET PO SCH (08:24)
[2018-05-23] MEDS: glyBURIDE 5 MG TABLET PO SCH ×2 (08:24→17:11)
[2018-05-23] MEDS: FUROSEMIDE 40 MG TABLET. PO SCH (08:24)
[2018-05-23] MEDS: ASPIRIN ENTERIC COATED 325 MG TABLET.DR. PO SCH (08:30)
[2018-05-23 11:00] VITALS: BP 154/88
--- NOTE | 2018-05-23 12:57 | NUR ---
SW following. Discussed with RN, pt has "fired" his home health agency. MONICO Araceli called in referral to PAT team for psych eval and recommendations. SW will continue to follow. RN notified.
[2018-05-23 15:00] VITALS: BP 129/85
--- NOTE | 2018-05-23 16:11 | NUR ---
SW following, Greg from [facility] met with pt. Pt was seeing a therapist at [facility] but has not seen her in a while (Elvira Gaytan), pt agreeable to start this again and do an intake through [place] to get assistance for transportation and medication management. Greg reported pt stated he and his caregiver/dpoa "do this sometimes" where she doesn't want to care for him. No psych placement needs or qualifiers. Dr. Fay was going to call pt's PO to determine what plan was when pt was released from [facility], however does not have the phone number. Pt having PT/OT to determine therapy needs and attempt to find placement. SW will continue to follow.
[2018-05-23] MEDS ORDERED: busPIRone 5 MG TABLET. PO PRN (17:45)
[2018-05-23] MEDS: HYDROcodone/APAP 5/325MG 1 TAB TABLET PO PRN (17:50)
[2018-05-23 19:00] VITALS: BP 133/82
[2018-05-23] MEDS: ATORVASTATIN CALCIUM 20 MG TABLET PO SCH (20:49)
[2018-05-23] MEDS: DICLOFENAC SODIUM 1% TOPICAL GEL 100GM TUBE. TP SCH (20:49)
[2018-05-23] MEDS: ZOLPIDEM 5 MG TABLET. PO PRN (20:49)
[2018-05-23] MEDS: INSULIN GLARGINE 300 UNITS/3 ML INSULN.PEN. SQ SCH (20:56)
[2018-05-23 23:00] VITALS: BP 121/83
[2018-05-24 03:00] VITALS: BP 143/89
[2018-05-24] MEDS: HYDROcodone/APAP 5/325MG 1 TAB TABLET PO PRN ×2 (05:18→11:22)
[2018-05-24 07:00] VITALS: BP 118/88
[2018-05-24] MEDS: ASPIRIN ENTERIC COATED 325 MG TABLET.DR. PO SCH (08:00)
[2018-05-24] MEDS: glyBURIDE 5 MG TABLET PO SCH (08:41)
[2018-05-24] MEDS: PANTOPRAZOLE 40 MG TABLET.DR. PO SCH (08:41)
[2018-05-24] MEDS: CLOPIDOGREL BISULFATE 75 MG TABLET PO SCH (08:42)
[2018-05-24] MEDS: FUROSEMIDE 40 MG TABLET. PO SCH (08:42)
[2018-05-24] MEDS: hydroCHLOROthiazide 25 MG TABLET PO SCH (08:42)
[2018-05-24] MEDS: METOPROLOL TART IMMED RELEASE 50 MG TABLET. PO SCH (08:44)
[2018-05-24] MEDS: LISINOPRIL 20 MG TABLET PO SCH (08:45)
[2018-05-24] MEDS: amLODIPine BESYLATE 10 MG TABLET PO SCH (08:46)
--- NOTE | 2018-05-24 09:36 | NUR ---
JULIUS following for dc planning. JULIUS contacted pt's friend and DPOA Harriet ([phone]), Harriet reported she can no longer take care of Dajuan as he sometimes does not participate and also is "mean" to her. JULIUS queried whether Harriet knows the name and contact number for Dajuan's PO, Harriet gave the number for the [facility] PO office ([phone]) and [place] ([phone]) as she had called the [facility] office and they reported he is out of the [place] branch. SW contacted the [facility] PO office who reported pt's name did not show up, [place] office reported pt's PO's name as Shyanne Gallagher who is out of the [facility] office. SW contacted the [facility] office to speak with Shyanne Gallagher, who per the head up operator desk is "not available today". JULIUS questioned whether there is someone else to speak to as it is very important as this pt does not have anywhere to go currently and it had appeared that he may have been lost in the system. Hilary (auxiliary operator at [facility]) took a call back number to have the housing team contact JULIUS to discuss next steps. Per Hilary, pt can only go places in a 50 mile radius, which would likely limit pt to nursing homes in [facility], although Hilary reported they can give approval if there is NO other options for pt. JULIUS spoke with pt who is agreeable to go to a LTC facility, pt would rather not go to the [facility], but reported if that is the only option he will go. Pt requested SW to contact Harriet to bring some clothes for him and his wallet, pt was also concerned about a doctors appointment he was supposed to have today, and the medicaid transportation, as well as speech therapy through his home health agency. JULIUS contacted Harriet, she will bring pt's belongings this afternoon when she gets off work. Harriet had also advised the doctor and transportation of pt being in the hospital. JULIUS advised RN and pt. JULIUS awaiting call from PO housing contact. JULIUS phoned and faxed referral to Ez at [facility] to see if they are able to take pt. JULIUS will continue to follow.
[2018-05-24 11:00] VITALS: BP 126/84
[2018-05-24] MEDS: DICLOFENAC SODIUM 1% TOPICAL GEL 100GM TUBE. TP SCH (11:24)
--- NOTE | 2018-05-24 14:27 | NUR ---
JULIUS following for discharge planning. JULIUS contacted Mellisa Caballero at the parole office to discuss housing, and left a voicemail ([phone]). Another contact is Hilary Gao ([phone]), Hilary advised pt can go to the [facility] and get a letter from them, and someone there will help find a long-term for pt to stay in. JULIUS contacted [facility] to ensure this would be okay, the facility is closed until Sunday (05/27/18) at 8.30am. JULIUS contacted Hilary again to advise of this, Hilary reported pt can go to the [facility] homeless long-term in [place]. JULIUS contacted [facility] who do have a male bed available and can manage pt's in wheelchairs. JULIUS received a call from Keysha at [facility] who advised the would like to accept pt, they are just waiting to hear from their business office. Keysha advised the discharge paperwork would have to state "Emergency admission to bed bug exterminator care" and has to be physically signed by a physician. JULIUS notified RN and Dr. Sanabria. JULIUS waiting to hear back from Keysha in about an hour. [facility] is willing to take pt today if everything pans out with their business office. JULIUS will continue to follow.
[2018-05-24 15:00] VITALS: BP 113/76
[2018-05-24] MEDS ORDERED: busPIRone 10 MG TABLET. PO PRN (15:08)
[2018-05-24] MEDS ORDERED: DICL100G18 TP (15:37)
[2018-05-24] MEDS ORDERED: Pantoprazole PO (15:37)
[2018-05-24] MEDS ORDERED: HYDR-2761 PO (15:37)
[2018-05-24] MEDS ORDERED: BUSP10TA PO (15:37)
--- NOTE | 2018-05-24 15:39 | DISCH ---
DISCHARGE DISCHARGE INFORMATION: DISCHARGE DATE: May 24, 2018 FINAL DIAGNOSIS Problems Medical Problems: (1) Abdominal pain, generalized Status: Acute (2) Anxiety about health Status: Acute CONDITION ON DISCHARGE: Stable CODE STATUS: Code Status: Full HALFWAY: SNF STAY <30 DAYS: No HOSPICE: HOSPICE: No HOSPICE EVAL & TREAT: No LTAC: ADMIT TO LTAC: No POST DISCHARGE ORDERS: ACTIVITY ORDERS: Resume previous activity, Activity as tolerated WEIGHT BEARING STATUS: As tolerated DIET AFTER DISCHARGE: Cardiac OTHER ORDERS: Emergency admission to terminal superintendent care CHECKS AFTER DISCHARGE: CHECKS AFTER DISCHARGE: Check blood press - daily, Check blood sugar, ac/hs, Check your Temp as needed, Weigh Yourself Daily FOLLOW-UP: ADDITIONAL FOLLOW-UP: Emergency admission to [facility] TREATMENT/EQUIPMENT ORDERS: ADAPTIVE EQUIPMENT NEEDED: None Physical Therapy For: Evalulation/Treatment Occupational Therapy For: Evaluation/Treatment Speech Language Pathology For: Evaluation/Treatment DISCHARGE MEDICATIONS: Home Meds Active Scripts Hydrocodone Bit/Acetaminophen (HYDROCODONE-APAP 5-325 ) 1 Tab Tablet, 1 TAB PO PRN Q4HRS PRN for MILD PAIN for 6 Days, #18 TAB Prov:AVEL KOCH MD 05/24/18 Diclofenac Sodium (VOLTAREN) 100 Gm Gel..gram., 1 ROMEO TP BID for Osteoarthritis for 30 Days, #60 EACH Prov:AVEL KOCH MD 05/24/18 Buspirone Hcl (BUSPIRONE HCL) 10 Mg Tablet, 7.5 MG PO PRN TID PRN for ANXIETY / AGITATION for 30 Days, #90 TAB Prov:AVEL KOCH MD 05/24/18 [Pantoprazole] 40 MG TABLET.DR [place] Conflict Check, 40 MG PO DAILYAC for 30 Days, #30 Prov:AVEL KOCH MD 05/24/18 Glyburide (GLYBURIDE) 5 Mg Tablet, 1 TAB PO BID for dm 2, #60 TAB 5 Refills Prov:ERIN ESCOBAR MD 04/28/18 Hydrochlorothiazide (HYDROCHLOROTHIAZIDE TABLET ) 25 Mg Tablet, 25 MG PO DAILY for DIURETIC for 30 Days, #30 TAB 0 Refills Prov:ERIN ESCOBAR MD 04/28/18 Amlodipine Besylate (NORVASC) 10 Mg Tablet, 10 MG PO DAILY for htn for 30 Days, #30 TAB Prov:ERIN ESCOBAR MD 04/28/18 Insulin Glargine,Hum.rec.anlog (LANTUS SOLOSTAR) 100 Unit/1 Ml Insuln.pen, 20 UNITS SQ QHS for DM MDD 1, #14 EACH Prov:ERIN ESCOBAR MD 04/22/18 Furosemide (FUROSEMIDE) 40 Mg Tablet, 40 MG PO DAILY for HTN MDD 1, #30 TAB Prov:ERIN ESCOBAR MD 04/22/18 Aspirin (ASPIRIN EC) 325 Mg Tablet.dr, 325 MG PO DAILYWBKFT for CVA MDD 1, #30 TAB.SR Prov:ERIN ESCOBAR MD 04/22/18 Lisinopril (LISINOPRIL) 40 Mg Tablet, 40 MG PO DAILY for HTN MDD 1, #30 TAB Prov:ERIN ESCOBAR MD 04/22/18 Metoprolol Tartrate (METOPROLOL TARTRATE) 50 Mg Tablet, 25 MG PO BID for HTN MDD 1, #60 TAB Prov:ERIN ESCOBAR MD 04/22/18 Atorvastatin Calcium (ATORVASTATIN CALCIUM) 20 Mg Tablet, 20 MG PO QHS for CVA MDD 1, #30 TAB Prov:ERIN ESCOBAR MD 04/22/18 Clopidogrel Bisulfate (CLOPIDOGREL) 75 Mg Tablet, 75 MG PO DAILYWBKFT for cva MDD 1, #30 TAB Prov:ERIN ESCOBAR MD 04/22/18 AVEL KOCH MD May 24, 2018 15:39
--- NOTE | 2018-05-24 16:03 | PDOC3 ---
Discharge Summary Visit Information Date of Admission: May 22, 2018 Date of Discharge: May 24, 2018 Admitting Diagnosis: Unable to walk Final Diagnosis Problems Medical Problems: (1) Abdominal pain, generalized Status: Acute (2) Anxiety about health Status: Acute Brief Hospital Course Allergies Allergies Coded Allergies Type Severity Reaction Last Updated Verified Fish Containing Products Allergy Severe Anaphylaxis 05/12/18 Yes Iodine and Iodide Containing Produc Allergy Severe swelling 04/17/18 Yes Penicillins Allergy Severe swelling 04/17/18 Yes peanut Allergy Severe Swelling 04/14/18 Yes shellfish derived Allergy Severe Anaphylaxis 05/12/18 Yes Vital Signs Vital Signs Date Time Temp Pulse Resp B/P (MAP) Pulse Ox O2 Delivery O2 Flow Rate FiO2 05/24/18 15:00 98.0 72 17 113/76 (88) 96 98.0 05/24/18 12:45 Room Air Lab Results Laboratory Tests Test 05/22/18 17:25 05/22/18 18:00 05/22/18 21:16 05/23/18 04:30 White Blood Count 6.3 x10^3/uL (4.0-11.0) 4.0 x10^3/uL (4.0-11.0) Red Blood Count 4.22 x10^6/uL (4.30-5.70) 4.04 x10^6/uL (4.30-5.70) Hemoglobin 13.7 g/dL (13.0-17.5) 13.1 g/dL (13.0-17.5) Hematocrit 38.4 % (39.0-53.0) 37.1 % (39.0-53.0) Mean Corpuscular Volume 91 fL (79-100) 92 fL (79-100) Mean Corpuscular Hemoglobin 33 pg (25-35) 33 pg (25-35) Mean Corpuscular Hemoglobin Concent 36 g/dL (31-37) 35 g/dL (31-37) Red Cell Distribution Width 13.3 % (11.5-14.5) 13.3 % (11.5-14.5) Platelet Count 105 x10^3/uL (140-400) 90 x10^3/uL (140-400) Neutrophils (%) (Auto) 64 % (31-73) 50 % (31-73) Lymphocytes (%) (Auto) 25 % (24-48) 36 % (24-48) Monocytes (%) (Auto) 10 % (0-9) 10 % (0-9) Eosinophils (%) (Auto) 1 % (0-3) 4 % (0-3) Basophils (%) (Auto) 1 % (0-3) 1 % (0-3) Neutrophils # (Auto) 4.0 x10^3uL (1.8-7.7) 2.0 x10^3uL (1.8-7.7) Lymphocytes # (Auto) 1.5 x10^3/uL (1.0-4.8) 1.4 x10^3/uL (1.0-4.8) Monocytes # (Auto) 0.6 x10^3/uL (0.0-1.1) 0.4 x10^3/uL (0.0-1.1) Eosinophils # (Auto) 0.1 x10^3/uL (0.0-0.7) 0.1 x10^3/uL (0.0-0.7) Basophils # (Auto) 0.1 x10^3/uL (0.0-0.2) 0.0 x10^3/uL (0.0-0.2) Sodium Level 140 mmol/L (136-145) 139 mmol/L (136-145) Potassium Level 4.0 mmol/L (3.5-5.1) 3.5 mmol/L (3.5-5.1) Chloride Level 104 mmol/L (98-107) 104 mmol/L (98-107) Carbon Dioxide Level 27 mmol/L (21-32) 26 mmol/L (21-32) Anion Gap 9 (6-14) 9 (6-14) Blood Urea Nitrogen 28 mg/dL (8-26) 23 mg/dL (8-26) Creatinine 1.0 mg/dL (0.7-1.3) 0.9 mg/dL (0.7-1.3) Estimated GFR (Cockcroft-Gault) 76.5 86.4 BUN/Creatinine Ratio 28 (6-20) Glucose Level 91 mg/dL (70-99) 89 mg/dL (70-99) Calcium Level 8.9 mg/dL (8.5-10.1) 8.5 mg/dL (8.5-10.1) Total Bilirubin 0.4 mg/dL (0.2-1.0) Aspartate Amino Transf (AST/SGOT) 61 U/L (15-37) Alanine Aminotransferase (ALT/SGPT) 48 U/L (16-63) Alkaline Phosphatase 124 U/L (46-116) 117 U/L (46-116) Total Protein 7.9 g/dL (6.4-8.2) Albumin 2.5 g/dL (3.4-5.0) Albumin/Globulin Ratio 0.5 (1.0-1.7) Lipase 133 U/L (73-393) Urine Collection Type Unknown Urine Color Yellow Urine Clarity Clear Urine pH 7.5 Urine Specific [place] 1.020 Urine Protein >=300 mg/dL (NEG-TRACE) Urine Glucose (UA) Negative mg/dL (NEG) Urine Ketones (Stick) Negative mg/dL (NEG) Urine Blood Negative (NEG) Urine Nitrite Negative (NEG) Urine Bilirubin Negative (NEG) Urine Urobilinogen Dipstick 4.0 mg/dL (0.2 mg/dL) Urine Leukocyte Esterase Negative (NEG) Urine RBC Occ /HPF (0-2) Urine WBC 0 /HPF (0-4) Urine Squamous Epithelial Cells Occ /LPF Urine Bacteria 0 /HPF (0-FEW) Urine Mucus Slight /LPF Urine Opiates Screen Neg (NEG) Urine Methadone Screen Neg (NEG) Urine Barbiturates Neg (NEG) Urine Phencyclidine Screen Neg (NEG) Urine Amphetamine/Methamphetamine Neg (NEG) Urine Benzodiazepines Screen Neg (NEG) Urine Cocaine Screen Neg (NEG) Urine Cannabinoids Screen Neg (NEG) Urine Ethyl Alcohol Neg (NEG) Glucose (Fingerstick) 241 mg/dL (70-99) Test 05/23/18 04:34 05/23/18 08:12 05/23/18 11:32 05/23/18 16:40 Glucose (Fingerstick) 82 mg/dL (70-99) 122 mg/dL (70-99) 223 mg/dL (70-99) 126 mg/dL (70-99) Test 05/23/18 20:47 05/24/18 07:58 05/24/18 11:34 Glucose (Fingerstick) 174 mg/dL (70-99) 90 mg/dL (70-99) 116 mg/dL (70-99) Laboratory Tests Test 05/23/18 16:40 05/23/18 20:47 05/24/18 07:58 05/24/18 11:34 Glucose (Fingerstick) 126 mg/dL (70-99) 174 mg/dL (70-99) 90 mg/dL (70-99) 116 mg/dL (70-99) Brief Hospital Course Mr. Zuleta is a 57 old w/ PMHx of stroke, HTN, afib, medication non-compliance who was brought in as patient combative with both his caregiver and home health nurse. Patient fired by home health nurse agency given behavior and ld teacher unable to care for him given combative nature, though not combative with staff, seems he actually fell out a wheelchair at home, has multiple bruises on his forearms and uppers arms. Patient lives at caretakers home. He reports epigastric pain for a few weeks. Has other complaints of polyarthralgias and shortness of breath with cough. asking something for sleep in pain. patient has no home to go to so brought in as self-care deficit. 05/23/18: Left sided weakness noted. Overnight was verbally rude to staff. Has pain complaints everywhere. States he is unable, actively urinated on himself during my physical examination and asked me to clean it up. CT Head was consistent with - Continued evolution of a right middle cerebral artery territory infarct, with increased associated cytotoxic edema compared to prior examination. High density within a right MCA sylvian branch may represent thrombus. Cortically based high attenuation in the right frontoparietal lobes may represent laminar necrosis versus cerebral microhemorrhages. 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 He is apparently institutionalized from his time incarcerated and could likely benefit from longer term institutionalization with [facility]. A/P: Hx of CVA Apr 2018 - Currently unable to walk, or refusing to walk, either way he fell out of a wheelchair at home and hurt his right arm and buttocks. Afib with CHADSVASC2 score of 4 - needs to continue anticoagulation, however, without home health and unable to care for himself with weakness on PT/OT examination recommending 24/7 care he needs [facility] HTN DM on insulin therapy Alkaline Phosphatemia Epigastric pain secondary to Dyspepsia Cirrhosis (on ultrasound) Self Care Deficit - needs SNF, however apparently this is not possible given his financial situation, he needs [facility] Discharge Information Condition at Discharge: Stable Follow Up: Weeks (2) Disposition/Orders: D/C to Another Facility Scheduled Amlodipine Besylate (Norvasc) 10 Mg Tablet, 10 MG PO DAILY for htn for 30 Days, #30 Prescribed by: ERIN ESCOBAR on 04/28/18919 Last Action: Continued on 05/22/182015 by SOFIYA PATTERSON MD Aspirin (Aspirin Ec) 325 Mg Tablet.dr, 325 MG PO DAILYWBKFT for CVA MDD 1, #30 Prescribed by: ERIN ESCOBAR on 04/22/18902 Last Action: Continued on 05/22/182015 by SOFIYA PATTERSON MD Atorvastatin Calcium (Atorvastatin Calcium) 20 Mg Tablet, 20 MG PO QHS for CVA MDD 1, #30 Prescribed by: ERIN ESCOBAR on 04/22/18902 Last Action: Continued on 05/22/182015 by SOFIYA PATTERSON MD Clopidogrel Bisulfate (Clopidogrel) 75 Mg Tablet, 75 MG PO DAILYWBKFT for cva MDD 1, #30 Prescribed by: ERIN ESCOBAR on 04/22/18902 Last Action: Continued on 05/22/182015 by SOFIYA PATTERSON MD Diclofenac Sodium (Voltaren) 100 Gm Gel..gram., 1 ROMEO TP BID for Osteoarthritis for 30 Days, #60 Prescribed by: AVEL KOCH MD on 05/24/18 1537 Furosemide (Furosemide) 40 Mg Tablet, 40 MG PO DAILY for HTN MDD 1, #30 Prescribed by: ERIN ESCOBAR on 04/22/18902 Last Action: Continued on 05/22/182015 by SOFIYA PATTERSON MD Glyburide (Glyburide) 5 Mg Tablet, 1 TAB PO BID for dm 2, #60 Ref 5 Prescribed by: ERIN ESCOBAR on 04/28/18919 Last Action: Continued on 05/22/182015 by SOFIYA PATTERSON MD Hydrochlorothiazide (Hydrochlorothiazide Tablet ) 25 Mg Tablet, 25 MG PO DAILY for DIURETIC for 30 Days, #30 Ref 0 Prescribed by: ERIN ESCOBAR on 04/28/18919 Last Action: Continued on 05/22/182015 by SOFIYA PATTERSON MD Insulin Glargine,Hum.rec.anlog (Lantus Solostar) 100 Unit/1 Ml Insuln.pen, 20 UNITS SQ QHS for DM MDD 1, #14 Prescribed by: ERIN ESCOBAR on 04/22/18902 Last Action: Continued on 05/22/182015 by SOFIYA PATTERSON MD Lisinopril (Lisinopril) 40 Mg Tablet, 40 MG PO DAILY for HTN MDD 1, #30 Prescribed by: ERIN ESCOBAR on 04/22/18902 Last Action: Continued on 05/22/182015 by SOFIYA PATTERSON MD Metoprolol Tartrate (Metoprolol Tartrate) 50 Mg Tablet, 25 MG PO BID for HTN MDD 1, #60 Prescribed by: ERIN ESCOBAR on 04/22/18902 Last Action: Continued on 05/22/182015 by SOFIYA PATTERSON MD [Pantoprazole] 40 MG TABLET.DR, 40 MG PO DAILYAC for 30 Days, #30 Prescribed by: AVEL KOCH MD on 05/24/18 1537 Scheduled PRN Buspirone Hcl (Buspirone Hcl) 10 Mg Tablet, 7.5 MG PO PRN TID PRN for ANXIETY / AGITATION for 30 Days, #90 Prescribed by: AVEL KOCH MD on 05/24/18 1537 Hydrocodone Bit/Acetaminophen (Hydrocodone-Apap 5-325 ) 1 Tab Tablet, 1 TAB PO PRN Q4HRS PRN for MILD PAIN for 6 Days, #18 Prescribed by: AVEL KOCH MD on 05/24/181536 AVEL KOCH MD May 24, 2018 16:03
--- NOTE | 2018-05-24 16:07 | NUR ---
Pt has been accepted at [facility]. Pt will be transported at 1630. No further SW needs.
--- NOTE | 2018-05-24 16:24 | NUR ---
Discharge Note: Patient was discharged to senior living facility. Patient did not have an IV to discontinue. Patients agreeable to discharge plans. Patient was transported over via wheelchair van with all personal belongings. Called report to RN at the facility Addendum: 05/24/18 at 1843 by PREETHI LOMELI RN Called the facility multiple times to give report, was told RN was busy in rooms. Let name and phone number for RN to call this RN back.
== END 2018-05-24 16:49 ==
LOC: ER 16:33 → 5 SOUTH 18:20
PROVIDERS: ADMIT Internal Medicine; ATTEND Internal Medicine
DX: R10.13 Epigastric pain (principal); I25.10 Atherosclerotic heart disease of native coronary artery without angina pectoris; I10 Essential (primary) hypertension; I48.91 Unspecified atrial fibrillation; I63.9 Cerebral infarction, unspecified; F41.9 Anxiety disorder, unspecified; E11.40 Type 2 diabetes mellitus with diabetic neuropathy, unspecified; M54.5 Low back pain; K74.60 Unspecified cirrhosis of liver; B15.9 Hepatitis A without hepatic coma; E83.39 Other disorders of phosphorus metabolism; Z86.73 Personal history of transient ischemic attack (TIA), and cerebral infarction without residual deficits
CPT/HCPCS: 36415; 80048; 80053; 80307; 81001; 82962; 83690; 84075; 85025; 96372; 97162; 97166; 97530; G0378; G0379; J1815; J7030

== ENCOUNTER 2018-06-02 20:54 | Inpatient (IN) | payer OTHER ==
[~2018-06-02] VITALS: Ht 175.3 cm; Wt 89.8 kg
[~2018-06-02 20:54] MED LIST changes: +BUSP10TA PO; +DICL100G18 TP; +HYDR-2761 PO; +Pantoprazole PO
[2018-06-02 21:20] LABS: BILIRUBIN,URINE NEGATIVE (NEG); CLARITY,URINE CLEAR; COLOR,URINE YELLOW; NITRITE,URINE NEGATIVE (NEG); PH,URINE 6.5; PROTEIN,URINE 100 mg/dL (NEG-TRACE)
[2018-06-02 21:29] LABS: HYALINE CASTS, URINE FEW /HPF
[2018-06-02 21:30] LABS: BACTERIA,URINE 0 /HPF (0-FEW); RBC,URINE OCC /HPF (0-2); WBC,URINE 0 /HPF (0-4)
[2018-06-02] MEDS ORDERED: IV NORMAL SALINE 1000ML BAG 1,000 ML IV ONE (21:30)
[2018-06-02 22:18] LABS: BASO % 1 % (0-3); EOS # 0.1 x10^3/uL (0.0-0.7); EOS % 3 % (0-3); HEMATOCRIT 40.1 % (39.0-53.0); HEMOGLOBIN 14.2 g/dL (13.0-17.5); LYMPH # 1.9 x10^3/uL (1.0-4.8); LYMPH % 33 % (24-48); MEAN CORPUSCULAR HEMOGLOBIN 32 pg (25-35); MEAN CORPUSCULAR HGB CONC 35 g/dL (31-37); MEAN CORPUSCULAR VOLUME 91 fL (79-100); MONO # 0.5 x10^3/uL (0.0-1.1); MONO % 9 % (0-9); NEUT # 3.1 x10^3uL (1.8-7.7); NEUT % 55 % (31-73); PLATELET COUNT 100 x10^3/uL (140-400); RED CELL DISTRIBUTION WIDTH 13.6 % (11.5-14.5); WHITE BLOOD COUNT 5.7 x10^3/uL (4.0-11.0)
[2018-06-02 22:22] LABS: PROTHROMBIN TIME PATIENT 14.8 SEC (11.7-14.0)
[2018-06-02 22:27] LABS: CALCIUM 9.2 mg/dL (8.5-10.1); CREATININE 1.3 mg/dL (0.7-1.3); GFR 56.5; POTASSIUM 3.6 mmol/L (3.5-5.1)
[2018-06-02 22:33] LABS: ALBUMIN 2.9 g/dL (3.4-5.0); ALBUMIN/GLOBULIN RATIO 0.5 (1.0-1.7); MAGNESIUM 1.8 mg/dL (1.8-2.4); TOTAL BILIRUBIN 0.4 mg/dL (0.2-1.0); TOTAL PROTEIN 8.6 g/dL (6.4-8.2)
[2018-06-02 22:39] LABS: CREATINE KINASE 53 U/L (39-308)
--- NOTE | 2018-06-02 22:58 | RAD ---
CT scan of the head without contrast 06/02/2018 Clinical History: Blurred vision. Technique: Unenhanced, contiguous, 5 mm axial sections were obtained through the head. One or more of the following individualized dose reduction techniques were utilized for this study: 1. Automated exposure control. 2. Adjustment of the mA and/or kV according to patient size. 3. Use of iterative reconstruction technique. Findings: Comparison study is dated 05/02/2018. There is generalized parenchymal atrophy. Areas of decreased attenuation are seen within the periventricular and subcortical white matter of both cerebral hemispheres consistent with areas of small vessel ischemic disease. An area of encephalomalacia is seen involving the right temporal lobe extending to involve the right parietal right occipital lobe consistent with a right MCA distribution infarct. No acute parenchymal abnormality is seen. No extra-axial fluid collection is noted. No skull fracture is seen. Impression: No acute intracranial abnormality is seen. Electronically signed by: Shun Fuentes MD (06/02/2018 10:53 PM) [facility]
--- NOTE | 2018-06-02 23:29 | RAD ---
Examination: CT of the abdomen pelvis without contrast HISTORY: History of abdominal pain, distention COMPARISON: 05/08/2018 TECHNIQUE: Axial CT images of the abdomen pelvis were performed without contrast. Coronal and sagittal reformats are performed Exposure: One or more of the following individualized dose reduction techniques were utilized for this examination: 1. Automated exposure control 2. Adjustment of the mA and/or kV according to patient size 3. Use of iterative reconstruction technique The bibasilar lungs are clear. No evidence of free air identified in the abdomen The liver appears somewhat nodular in contour. The spleen is mildly enlarged. Low-attenuation identified in the anterior aspect of the spleen is similar to prior exam measuring 4.8 cm. Few other smaller hypodensities identified in the spleen. There is a large gallstone measuring 4.8 cm identified in the gallbladder. Mild sludge identified within the gallbladder The visualized pancreas grossly appears unremarkable The stomach is mildly distended With small bowel is nondilated There is a small umbilical hernia identified containing fat and omentum similar to prior exam. Urinary bladder is mildly distended Mild fat stranding identified in the lower abdomen No evidence of intrarenal collecting system calculi or hydronephrosis Moderate aortic atherosclerosis. Coronary artery calcifications identified. IMPRESSION: 1. Large gallstone identified within the gallbladder. 2. Mild cirrhotic appearance of the liver. Mild splenomegaly. 3. Mild fat stranding identified in the lower abdomen particularly in the right nonspecific could be minimal ascites. 4. Small umbilical hernia containing omentum and fat. 5. Moderate size hypodensity identified in the spleen with the largest measuring 4.5 cm unchanged, nonspecific ,could be splenic infarcts similar to prior exam. Electronically signed by: Hong Gallagher MD (06/02/2018 11:25 PM) [facility]
[2018-06-03] MEDS ORDERED: ONDANSETRON PF 4 MG/2 ML VIAL. IV PRN (01:30)
[2018-06-03] MEDS ORDERED: ACETAMINOPHEN 325 MG TABLET. PO PRN (01:30)
[2018-06-03] MEDS ORDERED: DEXTROSE 50% 25 GM / 50ML DISP.SYRIN. IV PRN (01:30)
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
[2018-06-03] MEDS ORDERED: HYDROcodone/APAP 5/325MG 1 TAB TABLET PO ONE (02:00)
[2018-06-03] MEDS ORDERED: IV NORMAL SALINE 1000ML BAG 1,000 ML IV ONE (02:00)
[2018-06-03 02:10] VITALS: BP 128/92
--- NOTE | 2018-06-03 05:00 | NUR ---
Paient refusing monitoring coordinator. Patient unhooked himself from IV fluids.
--- NOTE | 2018-06-03 06:29 | EKG ---
[facility] [address] [place] [address] Test Date: 2018-06-02 Test Time: 21:42:46 Pat Name: DEMETRIUS KAUFMAN Department: Room: Gender: M [employer]: : 1960 Requested By: SAMEERA HASSAN Order Number: [id number] Reading MD: Measurements Intervals [place] Rate: 79 P: NE: QRS: 1 QRSD: 84 T: -1 QT: 376 QTc: 432 Interpretive Statements IRREGULAR RHYTHM, NO P-WAVE FOUND NO SPECIFIC ECG ABNORMALITIES RI6.01 No previous ECG available for comparison
[2018-06-03 07:40] VITALS: BP 153/90
--- NOTE | 2018-06-03 07:45 | NUR ---
Pt using vulgar language with nursing staff, stating that he wants to leave, "I will crawl out of here, I don't care, I'm leaving today." This RN had the charge nurse, Em, speak to the patient regarding the language and behavior. Call placed call to Dr. Lee and explained the situation, he stated he would round on the patient today. Pt apologized for his behavior. Will continue to monitor. SS,RN
[2018-06-03] MEDS ORDERED: busPIRone 5 MG TABLET. PO PRN (08:00)
[2018-06-03] MEDS ORDERED: HYDROcodone/APAP 5/325MG 1 TAB TABLET PO PRN (08:00)
[2018-06-03] MEDS: INSULIN LISPRO 300 UNITS/3 ML INSULN.PEN. SQ SCH ×2 (08:39→12:27)
[2018-06-03] MEDS ORDERED: DICLOFENAC SODIUM 1% TOPICAL GEL 100GM TUBE. TP SCH (09:00)
[2018-06-03] MEDS ORDERED: hydroCHLOROthiazide 25 MG TABLET PO SCH (09:00)
[2018-06-03] MEDS ORDERED: CLOPIDOGREL BISULFATE 75 MG TABLET PO SCH (09:00)
[2018-06-03] MEDS ORDERED: PANTOPRAZOLE 40 MG TABLET.DR. PO SCH (09:00)
[2018-06-03] MEDS ORDERED: glyBURIDE 5 MG TABLET PO SCH (09:00)
[2018-06-03] MEDS ORDERED: METOPROLOL TART IMMED RELEASE 25 MG TABLET. PO SCH (09:00)
[2018-06-03] MEDS ORDERED: LISINOPRIL 20 MG TABLET PO SCH (09:00)
[2018-06-03] MEDS ORDERED: FUROSEMIDE 40 MG TABLET. PO SCH (09:00)
[2018-06-03] MEDS ORDERED: amLODIPine BESYLATE 10 MG TABLET PO SCH (09:00)
[2018-06-03] MEDS ORDERED: ASPIRIN ENTERIC COATED 325 MG TABLET.DR. PO SCH (09:00)
--- NOTE | 2018-06-03 11:15 | NUR ---
wound care patient seen per wound care consult. see wound assessment. patient has multiple areas of scabbed scratches. patient has a small wound to the left buttock, the area was cleaned and redressed with Calazime cream, recommendations of continuing with Calazime cream, prn. patient needs to be turning every 2 hours. wound care will continue to f/u.
--- NOTE | 2018-06-03 11:15 | NUR ---
SW following pt. Pt is well known to SW from previous admission. Pt is refusing to go back to [facility]. JULIUS discussed with pt and notified him pt was screened at various facilities in the past and has been declined. JULIUS also informed pt he has a choice to return back to facility or go to a [place] [facility]. JULIUS encouraged pt to consider returning to facility and challenged pt's unrealistic goals. JULIUS called pt's [facility] with pt but phone voice mail was full. Pt agreeable to return to facility. JULIUS phoned and faxed orders to [facility]. Pt will transport via [facility] at 1300. UGO RN and Physician.
[2018-06-03 11:52] VITALS: BP 142/70
--- NOTE | 2018-06-03 12:43 | DISCH ---
DISCHARGE DISCHARGE INFORMATION: FINAL DIAGNOSIS Problems Medical Problems: (1) Failure to obtain appropriate medical care of elder Status: Acute (2) Weakness Status: Acute CONDITION ON DISCHARGE: Stable CODE STATUS: Code Status: Full PRISON: SNF STAY <30 DAYS: Yes POST DISCHARGE ORDERS: ACTIVITY ORDERS: Resume previous activity, Activity as tolerated WEIGHT BEARING STATUS: As tolerated DIET AFTER DISCHARGE: Cardiac OTHER ORDERS: Emergency admission to manager terminal care CHECKS AFTER DISCHARGE: CHECKS AFTER DISCHARGE: Check blood press - daily, Check blood sugar, ac/hs, Check your Temp as needed, Weigh Yourself Daily TREATMENT/EQUIPMENT ORDERS: ADAPTIVE EQUIPMENT NEEDED: None Physical Therapy For: Evalulation/Treatment Occupational Therapy For: Evaluation/Treatment Speech Language Pathology For: Evaluation/Treatment DISCHARGE MEDICATIONS: Home Meds Active Scripts Hydrocodone Bit/Acetaminophen (HYDROCODONE-APAP 5-325 ) 1 Tab Tablet, 1 TAB PO PRN Q4HRS PRN for MILD PAIN for 6 Days, #18 TAB Prov:AVEL KOCH MD 05/24/18 Diclofenac Sodium (VOLTAREN) 100 Gm Gel..gram., 1 ROMEO TP BID for Osteoarthritis for 30 Days, #60 EACH Prov:AVEL KOCH MD 05/24/18 Buspirone Hcl (BUSPIRONE HCL) 10 Mg Tablet, 7.5 MG PO PRN TID PRN for ANXIETY / AGITATION for 30 Days, #90 TAB Prov:AVEL KOCH MD 05/24/18 [Pantoprazole] 40 MG TABLET.DR [place] Conflict Check, 40 MG PO DAILYAC for 30 Days, #30 Prov:AVEL KOCH MD 05/24/18 Glyburide (GLYBURIDE) 5 Mg Tablet, 1 TAB PO BID for dm 2, #60 TAB 5 Refills Prov:ERIN ESCOBAR MD 04/28/18 Hydrochlorothiazide (HYDROCHLOROTHIAZIDE TABLET ) 25 Mg Tablet, 25 MG PO DAILY for DIURETIC for 30 Days, #30 TAB 0 Refills Prov:ERIN ESCOBAR MD 04/28/18 Amlodipine Besylate (NORVASC) 10 Mg Tablet, 10 MG PO DAILY for htn for 30 Days, #30 TAB Prov:ERIN ESCOBAR MD 04/28/18 Insulin Glargine,Hum.rec.anlog (LANTUS SOLOSTAR) 100 Unit/1 Ml Insuln.pen, 20 UNITS SQ QHS for DM MDD 1, #14 EACH Prov:ERIN ESCOBAR MD 04/22/18 Furosemide (FUROSEMIDE) 40 Mg Tablet, 40 MG PO DAILY for HTN MDD 1, #30 TAB Prov:ERIN ESCOBAR MD 04/22/18 Aspirin (ASPIRIN EC) 325 Mg Tablet.dr, 325 MG PO DAILYWBKFT for CVA MDD 1, #30 TAB.SR Prov:ERIN ESCOBAR MD 04/22/18 Lisinopril (LISINOPRIL) 40 Mg Tablet, 40 MG PO DAILY for HTN MDD 1, #30 TAB Prov:ERIN ESCOBAR MD 04/22/18 Metoprolol Tartrate (METOPROLOL TARTRATE) 50 Mg Tablet, 25 MG PO BID for HTN MDD 1, #60 TAB Prov:ERIN ESCOBAR MD 04/22/18 Atorvastatin Calcium (ATORVASTATIN CALCIUM) 20 Mg Tablet, 20 MG PO QHS for CVA MDD 1, #30 TAB Prov:ERIN ESCOBAR MD 04/22/18 Clopidogrel Bisulfate (CLOPIDOGREL) 75 Mg Tablet, 75 MG PO DAILYWBKFT for cva MDD 1, #30 TAB Prov:ERIN ESCOBAR MD 04/22/18 MEGGAN PHILLIPS MD Jun 03, 2018 12:42
--- NOTE | 2018-06-03 13:07 | SSS ---
ADMIT DATE: 06/03/2018 HISTORY OF PRESENT ILLNESS: The patient is a 57-year-old male patient, a resident at [facility] [place] in [place], who apparently was very aggressive with the nursing staff yesterday, insisting he wants to go to the hospital as he is unable to get along with the nursing staff there. He was brought to the Emergency Room and was extensively investigated and all his lab work and imaging studies are normal. As he has refused to go back, he was admitted overnight for further evaluation. We have had a lengthy discussion with him today and we explained to him that he has only 2 options, either to go to a homeless snf or to go back to the only retirement that accepted him out of almost 30 nursing homes that refused to take him as he has previous criminal record. PAST MEDICAL HISTORY: Significant for hypertension, hyperlipidemia, coronary artery disease, atrial fibrillation, bronchial asthma, CVA and peripheral neuropathy. He is also known to have cirrhosis with positive for hepatitis A, B and C. PAST SURGICAL HISTORY: Unremarkable. FAMILY HISTORY: Positive for diabetes, hypertension. SOCIAL HISTORY: He has been incarcerated for almost 31 years. He does not smoke, drink alcohol or recreational drugs. ALLERGIES: HE IS ALLERGIC TO FISH CONTAINING PRODUCTS, IODINE AND IODINE CONTAINING PRODUCTS, PENICILLIN, PEANUTS, SHELLFISH AND DERIVATIVES. MEDICATIONS: He is currently on following medications: He is on amlodipine besylate 10 mg once a day, aspirin 325 mg once a day, atorvastatin 20 mg at bedtime, buspirone 7.5 mg 3 times a day, Plavix 75 mg once a day, diclofenac sodium for Voltaren gel 1 gram twice a day, furosemide 40 mg daily, glyburide 5 mg twice a day, hydrochlorothiazide 25 mg daily, hydrocodone/APAP 1 tablet every 4 hours as needed. He is on Lantus insulin 20 units at bedtime, lisinopril 40 mg once a day, metoprolol tartrate 25 mg twice a day, and Protonix 40 mg daily. PHYSICAL EXAMINATION: GENERAL: On examining him, he looked well and was clearly in no apparent respiratory distress. No pallor, jaundice, cyanosis, or thyromegaly. No jugular venous distension. No lymphedema. VITAL SIGNS: His heart rate was 85, blood pressure 153/90, temperature was 97.9, respiratory rate was 18 and oxygen saturation was 97%. HEAD, EYES, EARS, NOSE AND THROAT: Showed normocephalic, atraumatic. NECK: Supple. HEART: Showed normal first and second heart sounds. No gallop, rub or murmur. CHEST: Clear to auscultation. No crepitation or rhonchi. ABDOMEN: Distended, soft, nontender. NEUROLOGIC: He was awake, alert, responding appropriately. All his cranial nerves are intact. LABORATORY DATA: On arrival to the Emergency Room, he has had lab work done, which showed a white cell count 5700, hemoglobin 14, hematocrit 40, MCV 91, and platelet count of 100,000 with normal manual differential. His chemistry showed a serum sodium of 138, potassium 3.6, chloride 98, bicarbonate 33, anion gap of 7, BUN 42, creatinine 1.3, estimated GFR was 56 mL per minute. His glucose was 154, calcium was 9.2, magnesium was 1.8. Total bilirubin and alkaline phosphatase normal. AST, ALT slightly elevated. His total protein was 8.6, albumin was 2.9, and lipase 148. Prothrombin time was 14.8, INR 1.2, aPTT was 29. Urinalysis showed the urine was yellow, clear with a pH of 6.5, specific gravity 1.015. There was small amount of protein. The urine was negative for glucose, ketones, blood, nitrite as well as bilirubin and leukocyte esterase. There are no rbc's, no wbc's and no bacteria. ASSESSMENT AND PLAN: Basically, we have had a lengthy discussion with him as he was refusing to go back and stating that he was not getting along with the staff at [facility] [place], so we have two options, either go to a homeless snf or to go back and the nursing staff they are willing to take care of him there, and he finally agreed and was discharged back to continue with all his medications. MEGGAN PHILLIPS MD DR: GIANCARLO/eliana JOB#: [id number] / [id number]
--- NOTE | 2018-06-03 13:20 | NUR ---
Discharge Note: DEMETRIUS KAUFMAN [address] [place] [address] Discharge instructions and discharge home medications reviewed with PABLO Ramirez at [facility] and a copy given. All questions have been answered and understanding verbalized. Discontinued lines and drains: Peripheral IV intact. Patient discharged to Assisted Facility with Ambulance Personnel via Stretcher.
[2018-06-03] MEDS ORDERED: INSULIN GLARGINE 300 UNITS/3 ML INSULN.PEN. SQ SCH (21:00)
[2018-06-03] MEDS ORDERED: ATORVASTATIN CALCIUM 20 MG TABLET PO SCH (21:00)
== END 2018-06-03 13:30 | DRG 948 ==
LOC: ER 20:54 → 6 SOUTH 06-03 02:24
PROVIDERS: ADMIT Internal Medicine; ATTEND Internal Medicine
DX: R53.1 Weakness (principal); J45.909 Unspecified asthma, uncomplicated; I48.91 Unspecified atrial fibrillation; I25.10 Atherosclerotic heart disease of native coronary artery without angina pectoris; I10 Essential (primary) hypertension; E11.9 Type 2 diabetes mellitus without complications; E78.5 Hyperlipidemia, unspecified; G62.9 Polyneuropathy, unspecified; Z83.3 Family history of diabetes mellitus; Z82.49 Family history of ischemic heart disease and other diseases of the circulatory system; Z88.8 Allergy status to other drugs, medicaments and biological substances; Z86.73 Personal history of transient ischemic attack (TIA), and cerebral infarction without residual deficits; Z91.041 Radiographic dye allergy status; Z91.010 Allergy to peanuts; Z88.0 Allergy status to penicillin; Z91.013 Allergy to seafood
CPT/HCPCS: 36415; 70450; 74176; 80053; 81001; 82553; 82962; 83690; 83735; 84484; 85025; 85610; 85730; 87641; 93005; J1815; J7030